=== PATIENT | female | born 1935 | race Caucasian/White ===

== ENCOUNTER 2016-08-31 21:35 | Emergency (ER) | payer MEDICARE ==
--- NOTE | ~2016-08-31 | CT71 ---
[facility] A Service of [facility] & [facility] RADIOLOGY TEXT RESULTS PATIENT: AKI ARROYO LOCATION: [facility] : 39 UNIT #: [id number] AGE: [address]: Anne Marie Raya MD SEX: F ORDER DR: [id number] [facility] [place]. [place], [place] [address] [id number] MR#: [id number] Acc #: [id number] NAME: AKI ARROYO. : 1935 SEX: F STUDY DATE/TIME: 09/01/2016 0:09 UNIT: [facility] ROOM: STUDY DESCRIPTION: CT Head Wo Contrast Attending Physician: Anne Marie Raya M.D. Ordering Physician: Anne Marie Raya M.D. Primary Care Physician: No Primary Care Physician MEDICAL IMAGING REPORT This report is preliminary unless electronic signature is present EXAM CT head, noncontrast, 09/01/2016. HISTORY 81-year-old female in the ED complaining of a 1-day history of severe headache. Decreased level of consciousness, nausea and vomiting. TECHNIQUE CT examination of the head without IV contrast. This CT exam was performed with one or more of the following radiation dose reduction techniques: automatic exposure control, adjustment of mA and/or kV according to patient size, and iterative reconstruction. FINDINGS The examination shows a large acute intraparenchymal hemorrhage within the right temporoparietal lobe. The hematoma measures up to 6.8 x 5.1 cm, and there is intraventricular and subarachnoid extension of hemorrhage. The surrounding white matter edema with slight midline shift from right to left by 2 or 3 mm. Mild ventricular enlargement. I have discussed the findings by telephone with the ED physician at 0025 hours on 09/01/2016. IMPRESSION 1. Large acute intraparenchymal hemorrhage in the right temporoparietal lobe with a hematoma measuring up to 6.8 x 5.1 cm. 2. Moderate adjacent intraventricular extension of acute hemorrhage, and a small amount of adjacent acute subarachnoid blood. 3. Extensive surrounding white matter edema with only slight midline shift from right to left by 2 or 3 mm. STS. [facility] A Service of [facility] & [facility] RADIOLOGY TEXT RESULTS PATIENT: AKI ARROYO LOCATION: [facility] #: [id number] : 39 UNIT #: [id number] AGE: [address]: Anne Marie Raya MD SEX: F ORDER DR: Dictated by... Yoel Teixeira M.D. THIS IS AN ELECTRONICALLY VERIFIED REPORT Yoel Teixeira M.D. at 09/01/2016 9:53 PM AMINAW/mary TD: 09/01/2016 12:06 JOB #: [id number] MEDICAL IMAGING REPORT Page 1 of 1 COPY
--- NOTE | ~2016-08-31 | CR72 ---
[facility] A Service of [facility] & [facility] RADIOLOGY TEXT RESULTS PATIENT: AKI ARROYO LOCATION: [facility] : 37 UNIT #: [id number] AGE: [address]: Anne Marie Raya MD SEX: F ORDER DR: [id number] [facility] [address]. [place], [place] [address] [id number] MR#: [id number] Acc #: [id number] NAME: AKI ARROYO. : 1935 SEX: F STUDY DATE/TIME: 09/01/2016 0:39 UNIT: [facility] ROOM: STUDY DESCRIPTION: CR Chest Single View Portable Attending Physician: Anne Marie Raya M.D. Ordering Physician: Anne Marie Raya M.D. Primary Care Physician: No Primary Care Physician MEDICAL IMAGING REPORT This report is preliminary unless electronic signature is present EXAM AP portable chest, 09/01/2016. HISTORY 81-year-old female in the ED with acute intracranial hemorrhage. Headache, nausea, and shortness of air beginning today. TECHNIQUE AP portable chest x-ray. FINDINGS The exam shows no active disease in the chest. Heart size and pulmonary vascularity are within normal limits. The lungs appear clear. No visible pulmonary infiltrate or pleural effusion. IMPRESSION No active disease. Dictated by... Yoel Teixeira M.D. THIS IS AN ELECTRONICALLY VERIFIED REPORT Yoel Teixeira M.D. at 09/01/2016 9:53 PM AMINAW/mary TD: 09/01/2016 12:53 JOB #: [id number] MEDICAL IMAGING REPORT Page 1 of 1 COPY
--- NOTE | ~2016-08-31 | EKG ---
PATIENT: AKI ARROYO UNIT #: [id number] Ventricular Rate: 76 BPM Atrial Rate: 76 BPM P-R Interval: 146 ms QRS Duration: 96 ms Q-T Interval: 406 ms QTC Calculation(Bezet): 456 ms P Fithian: 51 degrees Calculated R Fithian: -11 degrees Calculated T Fithian: 46 degrees Diagnosis Line: Normal sinus rhythm Diagnosis Line: Normal ECG Diagnosis Line: No previous ECGs available Diagnosis Line: Confirmed by IVELKA PÉREZ MD ([id number]) on Diagnosis Line: 09/01/2016 1:59:45 PM INTERPRETING MD: AGGIE
[2016-08-31 22:54] LABS: BASOPHIL% 0.1 % (0-2.5); HEMATOCRIT 39.1 % (35.0-45.0); HEMOGLOBIN 12.9 gm/dL (12.0-16.0); LYMPHOCYTE# 0.3 X10e3 (1.0-3.5); MEAN CELL VOLUME 83.7 FL (83-96); MEAN CORPUSCULAR HEMOGLOBIN 27.7 PG (28-34); MEAN CORPUSCULAR HGB CONC 33.1 g/dL (30-36); MEAN PLATELET VOLUME 8.6 FL (6.5-11.5); MONOCYTE# 0.3 X10e3 (0-1.0); NEUTROPHIL# 10.2 X10e3 (1.5-7.1); NEUTROPHIL% 93.9 % (40-75); PLATELET COUNT 172 X10e3 (140-420); RED BLOOD COUNT 4.67 X10e (3.90-5.30); WHITE BLOOD COUNT 10.8 X10e3 (4.0-10.5)
[2016-08-31 22:56] LABS: DIFF IND NO
[2016-08-31 23:02] LABS: POC - CKMB 1.4 ng/mL (0.0-7.9); POC - TROPONIN <0.05 ng/mL (<=0.05)
[2016-08-31 23:17] LABS: ALBUMIN SERUM 4.5 g/dL (3.5-5.0); BILIRUBIN,TOTAL 0.6 mg/dL (0.2-2.0); CALCIUM SERUM 9.1 mg/dL (8.4-10.2); CREATININE SERUM 0.7 mg/dL (0.6-1.4); GLOM FILT RATE Estimated 82.4 mL/min (>60); POTASSIUM 3.7 mmol/L (3.5-5.1)
[2016-08-31 23:19] LABS: BILIRUBIN, DIRECT 0.1 mg/dL (0.0-0.2); BILIRUBIN,INDIRECT 0.5 mg/dL (0.0-0.9)
[2016-08-31 23:31] LABS: URINE SOURCE CLEAN CATCH
[2016-08-31 23:37] LABS: URINE APPEARANCE CLOUDY; URINE BILIRUBIN NEG (NEG); URINE BLOOD NEG (NEG); URINE COLOR YELLOW; URINE GLUCOSE NEG (NEG); URINE KETONE NEG (NEG); URINE LEUKOCYTE ESTERASE NEG (NEG); URINE NITRATE NEG (NEG); URINE PROTEIN 1+ (NEG); URINE SPECIFIC GRAVITY 1.018 (1.003-1.035); URINE UROBILINOGEN 0.2 MG/DL (NEG)
[2016-08-31 23:40] LABS: U HYALINE CASTS AUWI 0-2 /[LPF]; URINE BACTERIA AUWI NEG (NEGATIVE); URINE SQUAMOUS EPITHELIAL CELL OCC /[HPF]; UWBCS1 AUWI 0-2 (0-5)
[2016-08-31 23:41] LABS: CULTURE INDICATED? NO
[2016-09-01 00:47] LABS: PROTHROMBIN TIME (PATIENT) 10.1 SECONDS (9.6-11.5)
== END 2016-09-01 01:23 | disposition hospice, home (50) ==
LOC: CED 21:35
PROVIDERS: Emergency Medicine
DX: I61.9 Nontraumatic intracerebral hemorrhage, unspecified (principal); I10 Essential (primary) hypertension; Z86.73 Personal history of transient ischemic attack (TIA), and cerebral infarction without residual deficits
CPT/HCPCS: 51701; 70450; 71010; 80048; 80076; 81003; 82553; 83690; 84484; 85025; 85610; 93005; 96361; 96365; 96375; 99291; J1953; J2405